=== PATIENT | male | born 1975 | race Caucasian/White ===

== ENCOUNTER 2017-12-19 05:46 | Emergency (ER) | payer MEDICAID ==
[~2017-12-19] VITALS: Ht 177.8 cm; Wt 68.0 kg
[~2017-12-19 05:46] MED LIST: MUPIROCIN22 GM TOPIC
[2017-12-19] MEDS ORDERED: IBUPROFEN600 MG ORAL (06:04)
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
[2017-12-19 06:12] VITALS: BP 113/78
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
== END 2017-12-19 07:07 | disposition home or self-care (01) ==
LOC: EMR 06:18
DX: S40.012A Contusion of left shoulder, initial encounter (principal); V43.52XA Car driver injured in collision with other type car in traffic accident, initial encounter; Y92.410 Unspecified street and highway as the place of occurrence of the external cause; F15.10 Other stimulant abuse, uncomplicated
CPT/HCPCS: 99283